=== PATIENT | female | born 1995 | race Caucasian/White ===

== ENCOUNTER 2021-01-01 01:30 | Emergency (ER) | payer MEDICAID ==
--- NOTE | 2021-01-01 02:04 | EDM.PDOC ---
ED HPI GENERAL MEDICAL PROBLEM - General Chief Complaint: General Stated Complaint: PAINFUL LUMP ON RIGHT SIDE OF NECK Time Seen by Provider: 01/01/21 02:03 Source of Information: Reports: Patient - History of Present Illness INITIAL COMMENTS - FREE TEXT/NARRATIVE: Patient presents with a bump near her right neck that is swollen and tender. She has had some mild cough and some runny nose. No high fever shortness of breath. No ear pain. No exacerbating or alleviating factors. Patient tried Tylenol yesterday right lympy node Pain Score (Numeric/FACES): 10 - Related Data Allergies Allergy/AdvReac Type Severity Reaction Status Date / Time No Known Allergies Allergy Verified 01/01/21 01:56 Home Meds: Home Meds . [No Known Home Meds] 01/01/21 [History] ED ROS GENERAL - Review of Systems Review Of Systems: See Below Constitutional: Denies: Fever, Chills HEENT: Reports: Ear Discharge. Denies: Ear Pain Respiratory: Reports: Cough. Denies: Shortness of Breath ED EXAM, GENERAL - Physical Exam Exam: See Below Free Text/Narrative:: CONSTITUTIONAL: well appearing in no acute distress SKIN: dry, and intact without rash HENT: Normocephalic, atraumatic, bilateral TMs clear. Oropharynx clear. Patient has a small area auricular mobile soft lymph node with mild tenderness. Perhaps half centimeter in diameter NECK: normal range of motion PULMONARY: normal chest rise and fall, no respiratory distress or stridor NEUROLOGIC: normal speech, moves all extremities, grossly non-focal MUSCULOSKELETAL: no gross deformities, atraumatic PSYCHIATRIC: normal mood and affect Course - Vital Signs Text/Narrative:: Patient presents as outlined above. Patient does have a swollen lymph node. Perhaps she is fighting off an infection she has had some degree of cough and runny nose. There is no other source of bacterial infection noted. The lymph node itself is mobile and small without fluctuance. Supportive treatment ibuprofen return precautions and PCP follow-up Last Recorded V/S: Last Vital Signs Temp 36.1 C 01/01/21 01:56 Pulse 94 01/01/21 01:56 Resp 18 01/01/21 01:56 BP 136/79 01/01/21 01:56 Pulse Ox 94 L 01/01/21 01:56 Departure - Departure Time of Disposition: 02:01 Disposition: Home, Self-Care 01 Condition: Good Clinical Impression: Lymph node enlargement - Discharge Information Referrals: PCP,None [Primary Care Provider] - Forms: ED Department Discharge Additional Instructions: Take ibuprofen for the discomfort. Return for any significant change or worsening condition or shortness of breath. The following information is given to patients seen in the emergency department who are being discharged to home. This information is to outline your options for follow-up care. We provide all patients seen in our emergency department with a follow-up referral. The need for follow-up, as well as the timing and circumstances, are variable depending upon the specifics of your emergency department visit. If you don't have a primary care physician on staff, we will provide you with a referral. We always advise you to contact your personal physician following an emergency department visit to inform them of the circumstance of the visit and for follow-up with them and/or the need for any referrals to a consulting specialist. The emergency department will also refer you to a specialist when appropriate. This referral assures that you have the opportunity for follow-up care with a specialist. All of these measure are taken in an effort to provide you with optimal care, which includes your follow-up. Primary care clinics in the area: [facility] - [facility] [address] [place] [id number] [facility] [address] [place] [id number] Under all circumstances we always encourage you to contact your private physician who remains a resource for coordinating your care. When calling for follow-up care, please make the office aware that this follow-up is from your recent emergency room visit. If for any reason you are refused follow-up, please contact the [facility] Emergency Department at and asked to speak to the emergency department charge nurse. Sepsis Event Note (ED) - Focused Exam Vital Signs: Vital Signs Temp Pulse Resp BP Pulse Ox 01/01/21 01:56 36.1 C 94 18 136/79 94 L
== END 2021-01-01 02:16 | disposition home or self-care (01) ==
LOC: MW.ED 01:30
DX: R59.9 Enlarged lymph nodes, unspecified (principal)
CPT/HCPCS: 99283

== ENCOUNTER 2021-03-21 20:03 | Emergency (ER) | payer MEDICAID ==
--- NOTE | 2021-03-21 20:19 | EDM.PDOC ---
ED HPI GENERAL MEDICAL PROBLEM - General Chief Complaint: General Stated Complaint: FALL Time Seen by Provider: 03/21/21 20:12 Source of Information: Reports: Patient History Limitations: Reports: No Limitations - History of Present Illness INITIAL COMMENTS - FREE TEXT/NARRATIVE: HISTORY AND PHYSICAL: History of present illness: Patient is a 25-year-old female who presents to the emergency room with complaints of right anterior rib and knee pain post fall. 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 Denies hitting her head or having any loss of consciousness. She also has noted some dysuria and hematuria which she believes is due to a UTI. Denies hitting her back or flank region. She has no flank tenderness to palpation. Continues to void routinely. Patient denies any fever, chills, headache, change in vision, syncope or near syncope. Denies any back pain, shortness of breath or cough. Denies any abdominal pain, nausea, vomiting, diarrhea, constipation or dysuria. Has not noted any blood in stool. Patient has been eating and drinking appropriately. No recent travel or sick contacts. Review of systems: As per history of present illness and below otherwise all systems reviewed and negative. Past medical history: As per history of present illness and as reviewed below otherwise noncontributory. Surgical history: As per history of present illness and as reviewed below otherwise noncontributory. Social history: See social history for further information Family history: As per history of present illness and as reviewed below otherwise noncontributory. Physical exam: General: Well developed and well nourished. Alert and orientated x 3. Nontoxic in appearance and in no acute distress. Vital signs are stable and have been reviewed by me. Nursing notes were reviewed. HEENT: Atraumatic, normocephalic, pupils equal and reactive bilaterally, negative for conjunctival pallor or scleral icterus, mucous membranes moist, TMs normal bilaterally, throat clear, neck supple, nontender, trachea midline. No drooling or trismus noted. No meningeal signs. No hot potato voice noted. Lungs: Clear to auscultation bilaterally. No wheezes, rales, or rhonchi. Chest tender to the right lateral and anterior distal rib region. Normal work of breathing, no accessory muscles used. Heart: S1S2, regular rate and rhythm without overt murmur, gallops, or rubs. No JVD. No peripheral edema Abdomen: Soft, nondistended, nontender. Normoactive bowel sounds. Negative for masses or costovertebral tenderness. Pelvis is stable. C-spine/Back: No pinpoint vertebral tenderness upon palpation. No crepitus, step-offs or obvious deformities. Patient is ambulatory into the emergency room without difficulty or deficit. Able to rock back on heels and walk on toes. Denies any urinary or fecal incontinence. Denies any numbness, tingling or saddle paresthesia. No concerns of serious infection, fracture or cord compression, or cauda equina syndrome. Deep tendon reflexes brisk bilaterally. Skin: Healing bruising around the right knee and right anterior rib. Remaining skin is intact, warm, dry. No lesions or rashes noted. Hematologic: No petechiae or purpra. Mucosa appropriate color and normal nail bed color and refill. Extremities: Healing bruising around the right knee although she has good flexion and extension. She has no bony tenderness to the knee. She moves all extremities per self without difficulty or deficits, negative for cords or calf pain. Strong pedal and pretibial pulses bilaterally. Neurovascular unremarkable. Neuro: Awake, alert, oriented. Cranial nerves II through XII unremarkable. Cerebellum unremarkable. Motor and sensory unremarkable throughout. Exam n onfocal. Psychiatric: Mood and affect are appropriate. Normal thought process. Answering questions appropriately. Please note that the patient was seen and evaluated during the 2019 SARS-CoV-2 novel coronavirus pandemic period. Community viral transmission is ongoing at time of this encounter and the emergency department is operating under pandemic response procedures. Medical Decision Making: Patient is a 25-year-old female who presents to the emergency room with complaints of right anterior rib pain and possible UTI. She states her right knee hurts although she has been weightbearing without any difficulty and has no concern for bony injury. Bruising is noted to the right knee. She is agreeable to UA, hCG you and right rib detail. Chest x-ray shows no evidence of fracture. She does have a significant UTI. Will treat with antibiotics. No concern that she needs a CT of the abdomen or pelvis. I have talked with the patient about today's findings, in addition to providing specific details for plan of care. Reassessment at the time of disposition demonstrates that the patient is in no acute distress. The patient is stable for discharge, counseling was provided and we discussed in great detail signs and symptoms that would prompt them to return to the Emergency Department. Medication, follow up and supportive care measures were reviewed and discussed. Voices understanding and is agreeable to plan of care. Denies any further questions or concerns at this time. Diagnostics: X-ray chest with rib detail, UA, hCG you Therapeutics: Tramadol Prescription: Tramadol Impression: Fall Rib contusion, right UTI Plan: 1. You were evaluated today on an emergent basis. Your urine does show a significant bladder infection. Please take the antibiotic as prescribed. Chest x-ray shows no evidence of fracture. 2. You can alternate Tylenol and ibuprofen as needed for pain and fever management. Tramadol 3. We encourage you to follow up with your primary care provider and/or recommended specialist in the next few days for re-evaluation and further care/management. 4. If your symptoms should worsen, new symptoms develop or any of the signs and symptoms we discussed should arise please return to the emergency room or call 911 (if needed). Definitive disposition and diagnosis as appropriate pending reevaluation and review of above. Right Middle Chest Pain Score (Numeric/FACES): 8 - Related Data Allergies Allergy/AdvReac Type Severity Reaction Status Date / Time No Known Allergies Allergy Verified 03/21/21 20:21 Home Meds: Home Meds Ciprofloxacin HCl [Cipro] 500 mg PO BID 5 Days #10 tablet 03/21/21 [Rx] Phenazopyridine HCl [Pyridium] 100 mg PO TID 2 Days #6 tablet 03/21/21 [Rx] traMADol [Ultram] 50 mg PO Q4H PRN #15 tab 03/21/21 [Rx] Past Medical History - Past Health History Medical/Surgical History: Denies Medical/Surgical History ED ROS GENERAL - Review of Systems Review Of Systems: Comprehensive ROS is negative, except as noted in HPI. ED EXAM, GENERAL - Physical Exam Exam: See Below (See dictation) Course - Vital Signs Last Recorded V/S: Last Vital Signs Temp 97.0 F 03/21/21 20:22 Pulse 102 H 03/21/21 20:22 Resp 18 03/21/21 20:22 BP 102/78 03/21/21 20:22 Pulse Ox 96 03/21/21 20:22 - Orders/Labs/Meds Orders: Active Orders 24 hr Category Date Time Status Ribs 2V w Chest Rt [CR] Stat Exams 03/21/21 20:38 Ordered CULTURE URINE [MREF] Stat Lab 03/21/21 20:30 Received Labs: Laboratory Tests 03/21/21 03/21/21 Range/Units 20:30 20:30 Urine Color YELLOW Urine Appearance CLOUDY Urine pH 6.0 (5.0-8.0) Ur Specific [place] >= 1.030 (1.001-1.035) Urine Protein >=300 H (NEGATIVE) mg/dL Urine Glucose (UA) NEGATIVE (NEGATIVE) mg/dL Urine Ketones TRACE H (NEGATIVE) mg/dL Urine Occult Blood LARGE H (NEGATIVE) Urine Nitrite POSITIVE H (NEGATIVE) Urine Bilirubin MODERATE H (NEGATIVE) Urine Urobilinogen 0.2 (<2.0) EU/dL Ur Leukocyte Esterase TRACE H (NEGATIVE) Urine RBC TOO NUMEROUS TO CT H (0-2/HPF) Urine WBC 10-15 (0-5/HPF) Ur Epithelial Cells FEW (NONE-FEW) Urine Bacteria 1+ H (NEGATIVE) Urine Mucus LIGHT (NONE-MOD) Urine HCG, Qual NEGATIVE (NEGATIVE) Meds: Medications Discontinued Medications Generic Name Dose Route Start Last Admin Trade Name Freq PRN Reason Stop Dose Admin Ciprofloxacin 500 mg 03/21/21 21:20 Ciprofloxacin 500 Mg Tab PO 03/21/21 21:21 ONETIME ONE Phenazopyridine HCl 200 mg 03/21/21 21:20 Phenazopyridine 200 Mg Tab PO 03/21/21 21:21 ONETIME ONE Tramadol HCl 50 mg 03/21/21 20:41 03/21/21 20:55 Tramadol 50 Mg Tab PO 03/21/21 20:42 50 mg ONETIME ONE Administration Departure - Departure Time of Disposition: 21:32 Disposition: Home, Self-Care 01 Clinical Impression: Fall Qualifiers: Encounter type: initial encounter Qualified Code(s): W19.XXXA - Unspecified fall, initial encounter UTI (urinary tract infection) Qualifiers: Urinary tract infection type: acute cystitis Hematuria presence: with hematuria Qualified Code(s): N30.01 - Acute cystitis with hematuria Contusion of rib on right side Qualifiers: Encounter type: initial encounter Qualified Code(s): S20.211A - Contusion of right front wall of thorax, initial encounter - Discharge Information Prescriptions: Ciprofloxacin HCl [Cipro] 500 mg PO BID 5 Days #10 tablet Phenazopyridine HCl [Pyridium] 100 mg PO TID 2 Days #6 tablet traMADol [Ultram] 50 mg PO Q4H PRN #15 tab PRN Reason: Pain Referrals: PCP,None [Primary Care Provider] - Forms: ED Department Discharge Additional Instructions: The following information is given to patients seen in the emergency department who are being discharged to home. This information is to outline your options for follow-up care. We provide all patients seen in our emergency department with a follow-up referral. The need for follow-up, as well as the timing and circumstances, are variable depending upon the specifics of your emergency department visit. If you don't have a primary care physician on staff, we will provide you with a referral. We always advise you to contact your personal physician following an emergency department visit to inform them of the circumstance of the visit and for follow-up with them and/or the need for any referrals to a consulting specialist. The emergency department will also refer you to a specialist when appropriate. This referral assures that you have the opportunity for follow-up care with a specialist. All of these measure are taken in an effort to provide you with optimal care, which includes your follow-up. Under all circumstances we always encourage you to contact your private physician who remains a resource for coordinating your care. When calling for follow-up care, please make the office aware that this follow-up is from your recent emergency room visit. If for any reason you are refused follow-up, please contact the [facility] Emergency Department at and asked to speak to the emergency department charge nurse. [facility] [address] [place] [address] [id number] [address] [address] Thank you for choosing the [facility] emergency department in [place] for your medical needs today. It was a pleasure caring for you. Today you were seen in the emergency department for pain related to fall Your prescription was electronically sent to: [facility] 1. You were evaluated today on an emergent basis. Your urine does show a significant bladder infection. Please take the antibiotic as prescribed. Chest x-ray shows no evidence of fracture. 2. You can alternate Tylenol and ibuprofen as needed for pain and fever management. Tramadol 3. We encourage you to follow up with your primary care provider and/or recommended specialist in the next few days for re-evaluation and further care/management. 4. If your symptoms should worsen, new symptoms develop or any of the signs and symptoms we discussed should arise please return to the emergency room or call 911 (if needed). Sepsis Event Note (ED) - Focused Exam Vital Signs: Vital Signs Temp Pulse Resp BP Pulse Ox 03/21/21 20:22 97.0 F 102 H 18 102/78 96 - My Orders Last 24 Hours: My Active Orders 03/21/21 20:30 CULTURE URINE [MREF] Stat 03/21/21 20:38 Ribs 2V w Chest Rt [CR] Stat - Assessment/Plan Last 24 Hours: My Active Orders 03/21/21 20:30 CULTURE URINE [MREF] Stat 03/21/21 20:38 Ribs 2V w Chest Rt [CR] Stat
[2021-03-21] MEDS ORDERED: traMADol 50 MG Tab PO ONE (20:41)
[2021-03-21] MEDS ORDERED: Ciprofloxacin 500 MG Tab PO ONE (21:20)
[2021-03-21] MEDS ORDERED: Phenazopyridine 200 MG Tab PO ONE (21:20)
--- NOTE | 2021-03-21 21:30 | CR ---
Indication: Pain following fall. Technique: PA view of the chest. Two views of the right ribs. Comparison: None Findings: The heart is normal in size. The lungs are clear. No infiltrate, pleural effusion, or pneumothorax is identified. No displaced right rib fractures are identified. Impression: No displaced right rib fractures. Dictated by Erlinda Domínguez MD @ 03/21/2021 9:28:03 PM (Electronically Signed)
== END 2021-03-21 21:51 | disposition home or self-care (01) ==
LOC: MW.ED 20:03
DX: S20.211A Contusion of right front wall of thorax, initial encounter (principal); N30.01 Acute cystitis with hematuria; W18.30XA Fall on same level, unspecified, initial encounter
CPT/HCPCS: 71101; 81001; 81025; 87086; 99283; A9270; 87088; 87186

== ENCOUNTER 2021-06-25 16:44 | Emergency (ER) | payer MEDICAID ==
[2021-06-25] MEDS ORDERED: LORazepam 1 MG Tab PO ONE (17:03)
[2021-06-25 18:16] LABS: ACETAMINOPHEN <2.0 ug/mL; BLOOD UREA NITROGEN,BUN 11 mg/dL (7.0-18.0); CARBON DIOXIDE,CO2 24.7 mmol/L (21.0-32.0); CHLORIDE,CL 101 mmol/L (98-107); ESTIMATED GFR > 60.0 ml/min; GLUCOSE RANDOM 88 mg/dL (74-106); POTASSIUM,K 4.6 mmol/L (3.5-5.1); SODIUM,NA 139 mmol/L (136-145)
== END 2021-06-25 20:13 ==
LOC: MW.ED 16:44
DX: R45.851 Suicidal ideations (principal); F32.A Depression, unspecified; Z20.822 Contact with and (suspected) exposure to COVID-19
CPT/HCPCS: 36415; 80053; 80143; 80179; 80305; 80307; 81003; 81025; 85025; 87635; 93005; 99285; A9270; 93010; U0002